=== PATIENT | male | born 1985 | race Caucasian/White ===

== ENCOUNTER 2017-01-09 16:26 | Emergency (ER) | payer OTHER ==
[2017-01-09 16:33] VITALS: BP 130/82; PULSE 101; RESP 20; TEMP 97.5
--- NOTE | 2017-01-09 16:47 | ED ---
Upper Extremity HPI - General Chief Complaint: Extremity Injury, Upper Stated Complaint: Right Hand Injury Time Seen by Provider: 01/09/17 16:47 Source: patient, RN notes reviewed Mode of arrival: ambulatory Limitations: no limitations - History of Present Illness Initial Comments: Patient is a 31-year-old male with chief complaint of right hand and wrist injury after jumping off the back of a truck and his hand hitting a metal piece of equipment. Patient reports that he has broken his right wrist before. He states that this happened approximately 10:30 in the morning. He states that he thinks that he may have broken it again however he is too busy before he realized that his wrist hurt. He reports he stopped the pain with flexion and extension. He denies any peripheral paresthesias. He states that he has pain with thumb and fourth and fifth finger. He denies any pain over the anatomical snuffbox.Patient denies any recent fever, chills, shortness of breath, chest pain, back pain, abdominal pain, nausea vomiting, numbness or tingling, dysuria or hematuria, constipation or diarrhea, headaches or visual changes, or any other current symptoms Place: work - Related Data Previous Rx's Medication Instructions Recorded Acetaminophen-Codeine 300-30mg 1 each PO Q6H PRN #20 tablet 02/23/15 [Tylenol #3] Ibuprofen [Motrin] 800 mg PO Q6HR PRN #30 tab 02/23/15 Penicillin V Potassium [Pen Vee K] 500 mg PO QID 10 Days 02/23/15 Naproxen 500 mg PO Q12HR #20 tab 01/09/17 Allergies Allergy/AdvReac Type Severity Reaction Status Date / Time No Known Allergies Allergy Verified 01/09/17 16:33 Review of Systems ROS Statement: Those systems with pertinent positive or pertinent negative responses have been documented in the HPI. ROS Other: All systems not noted in ROS Statement are negative. Past Medical History Past Medical History: No Reported History History of Any Multi-Drug Resistant Organisms: None Reported Past Surgical History: Adenoidectomy Past Psychological History: No Psychological Hx Reported Smoking Status: Current every day smoker Past Alcohol Use History: Occasional Past Drug Use History: None Reported General Exam - General Exam Comments Initial Comments: Well-appearing 31-year-old male. No acute distress. Limitations: no limitations General appearance: alert, in no apparent distress Head exam: Present: atraumatic, normocephalic, normal inspection Eye exam: Present: normal appearance, PERRL, EOMI. Absent: scleral icterus, conjunctival injection, periorbital swelling ENT exam: Present: normal exam, normal oropharynx, mucous membranes moist, TM's normal bilaterally Neck exam: Present: normal inspection. Absent: tenderness, meningismus, lymphadenopathy Respiratory exam: Present: normal lung sounds bilaterally. Absent: respiratory distress, wheezes, rales, rhonchi, stridor Cardiovascular Exam: Present: regular rate, normal rhythm, normal heart sounds. Absent: systolic murmur, diastolic murmur, rubs, gallop, clicks GI/Abdominal exam: Present: soft, normal bowel sounds. Absent: distended, tenderness, guarding, rebound, rigid Extremities exam: Present: normal inspection, full ROM, normal capillary refill. Absent: tenderness, pedal edema, joint swelling, calf tenderness Right Upper Arm exam: Present: normal inspection, full ROM Elbow exam: Present: normal inspection, full ROM Forearm Wrist exam: Present: normal inspection, full ROM Hand Wrist exam: Present: normal inspection, full ROM, tenderness (To palpation over the dorsal wrist.). Absent: swelling, abrasion Neuro motor exam: Present: wrist extension intact, thumb opposition intact Neurosensory exam: Present: 2-point discrimination Vascular: Present: normal capillary refill Back exam: Present: normal inspection Neurological exam: Present: alert, oriented X3, CN II-XII intact Psychiatric exam: Present: normal affect, normal mood Skin exam: Present: warm, dry, intact, normal color. Absent: rash Course Vital Signs 01/09/17 16:31 Temperature 97.5 F L Pulse Rate 101 H Respiratory 20 Rate Blood Pressure 130/82 O2 Sat by Pulse 100 Oximetry Medical Decision Making - Medical Decision Making Patient is a 31-year-old male with chief complaint of right hand and wrist injury after jumping off the back of a truck and his hand hitting a metal piece of equipment. Patient reports that he has broken his right wrist before. He states that this happened approximately 10:30 in the morning. He states that he thinks that he may have broken it again however he is too busy before he realized that his wrist hurt. He reports he stopped the pain with flexion and extension. Patient's x-rays were reviewed and are negative for any acute fracture. I will give the patient an Alo wrap any anti-inflammatory medication. At the blood as the patient follow-up with orthopedic physician if symptoms continue to persist. Return parameters were discussed. - Radiology Data Radiology results: report reviewed X-rays repeated is no evidence of any acute fracture. Disposition Clinical Impression: Sprain of wrist, right Disposition: HOME SELF-CARE Condition: Good Instructions: Wrist Injury (ED) Additional Instructions: Right patient advised to rest, ice, wear Alo wrap as instructed. Patient advised to follow-up with orthopedic if symptoms continue to persist. Return to the emergency department if any alarming signs or symptoms occur. Prescriptions: Naproxen 500 mg PO Q12HR #20 tab Referrals: Yogesh Stringer MD [Primary Care Provider] - 1-2 days Time of Disposition: 17:26
--- NOTE | 2017-01-09 17:07 | XR ---
EXAMINATION TYPE: XR wrist complete RT DATE OF EXAM: 01/09/2017 5:04 PM CLINICAL HISTORY: pain TECHNIQUE: Frontal, lateral and oblique images of the right wrist are obtained. COMPARISON: None. FINDINGS: There is no acute fracture/dislocation evident. The joint spaces appear within normal limits. The o verlying soft tissue appears unremarkable. IMPRESSION: There is no acute fracture or dislocation seen. ICD 10 NO FRACTURE, INITIAL EVALUATION
--- NOTE | 2017-01-09 17:20 | XR ---
EXAMINATION TYPE: XR hand limited RT DATE OF EXAM: 01/09/2017 5:04 PM CLINICAL HISTORY: pain TECHNIQUE: Frontal, lateral and oblique images of the right hand are obtained. COMPARISON: None. FINDINGS: There is no acute fracture/dislocation evident. The joint spaces appear within normal limi ts. The overlying soft tissue appears unremarkable. IMPRESSION: There is no acute fracture or dislocation ICD 10 NO FRACTURE, INITIAL EVALUATION
== END 2017-01-09 17:36 | disposition home or self-care (01) ==
LOC: EC 16:26
DX: S63.501A Unspecified sprain of right wrist, initial encounter (principal); W22.09XA Striking against other stationary object, initial encounter; Y99.0 Civilian activity done for income or pay; F17.200 Nicotine dependence, unspecified, uncomplicated
CPT/HCPCS: 99283

== ENCOUNTER 2017-05-29 23:41 | Emergency (ER) | payer OTHER ==
--- NOTE | 2017-05-30 00:21 | ED ---
General Adult HPI - General Chief complaint: Urogenital Stated complaint: ABD PAIN Time Seen by Provider: 05/29/17 23:50 Source: patient, RN notes reviewed Mode of arrival: ambulatory Limitations: no limitations - History of Present Illness Initial comments: This is a 31-year-old male who presents to the emergency department complaining that about 6 hours ago he stopped having the ability to urinate. Patient states for the last 2 hours has some suprapubic abdominal pain which is currently subsided. Patient states he still has the urge to urinate but is unable to urinate. Patient denies any recent trauma to the pelvic region. Patient denies any redness swelling to his penis or testicles. Patient states she's never had this problem in the past. Patient states she's not any change in sexual activity. Patient denies any drainage or lesions. Patient states he has had a little bit of back pain recently on the left. Patient states currently is not having any left-sided pain. Patient denies any fever chills per patient denies any vomiting or diarrhea. - Related Data Previous Rx's Medication Instructions Recorded Ciprofloxacin HCl [Cipro] 500 mg PO Q12HR #20 tablet 05/30/17 Allergies Allergy/AdvReac Type Severity Reaction Status Date / Time No Known Allergies Allergy Verified 05/29/17 23:48 Review of Systems ROS Statement: Those systems with pertinent positive or pertinent negative responses have been documented in the HPI. ROS Other: All systems not noted in ROS Statement are negative. Past Medical History Past Medical History: No Reported History History of Any Multi-Drug Resistant Organisms: None Reported Past Surgical History: Adenoidectomy Past Psychological History: No Psychological Hx Reported Smoking Status: Current every day smoker Past Alcohol Use History: Occasional Past Drug Use History: None Reported General Exam - General Exam Comments Initial Comments: GENERAL: Patient is well-developed and well-nourished. Patient is nontoxic and well- hydrated and is in mild distress. ENT: Neck is soft and supple. No significant lymphadenopathy is noted. Oropharynx is clear. Moist mucous membranes. Neck has full range of motion without eliciting any pain. EYES: The sclera were anicteric and conjunctiva were pink and moist. Extraocular movements were intact and pupils were equal round and reactive to light. Eyelids were unremarkable. PULMONARY: Unlabored respirations. Good breath sounds bilaterally. No audible rales rhonchi or wheezing was noted. CARDIOVASCULAR: There is a regular rate and rhythm without any murmurs gallops or rubs. ABDOMEN: Soft and nontender with normal bowel sounds. SKIN: Skin is clear with no lesions or rashes and otherwise unremarkable. NEUROLOGIC: Patient is alert and oriented x3. Cranial nerves II through XII are grossly intact. Motor and sensory are also intact. Normal speech, volume and content. Symmetrical smile. MUSCULOSKELETAL: Normal extremities with adequate strength and full range of motion. LYMPHATICS: No significant lymphadenopathy is noted PSYCHIATRIC: Normal psychiatric evaluation. Limitations: no limitations Course Vital Signs 05/29/17 05/30/17 23:46 01:20 Temperature 98.8 F 98.6 F Pulse Rate 93 85 Respiratory 18 16 Rate Blood Pressure 126/76 130/81 O2 Sat by Pulse 99 97 Oximetry Procedures - Catheter Insertion (Urinary) Indications: to alleviate urinary retention Prophylactic Antibiotics Given: No Bladder Scan/US before Catheterization: Yes Estimated Amount of Urine (mls): 850 Type of Catheter Inserted: coude tip Catheter Balloon Size (mLs): 10 Topical Anesthesia Used: Yes Results: successfully catheterized-immediate flow Patient Tolerated Procedure: well Complications: none Medical Decision Making - Medical Decision Making Nursing was unable to get a fully catheter in so I placed a catheter with a coud tip and had good flow and no complications from the patient Patient had 38 white cells in his urine so I went ahead and gave him a shot of Rocephin and Zithromax. For any possible sexually transmitted diseases. I also sent the patient home on antibiotics. I left the catheter in because of the difficulty in placing. I will have the patient follow up with urology - Lab Data Result diagrams: 05/30/17 00:35 05/30/17 00:35 Lab Results 05/30/17 05/30/17 05/30/17 Range/Units 00:35 00:35 01:30 WBC 11.8 H (3.8-10.6) k/uL RBC 4.61 (4.30-5.90) m/uL Hgb 14.5 (13.0-17.5) gm/dL Hct 42.1 (39.0-53.0) % MCV 91.5 (80.0-100.0) fL MCH 31.5 (25.0-35.0) pg MCHC 34.5 (31.0-37.0) g/dL RDW 14.1 (11.5-15.5) % Plt Count 289 (150-450) k/uL Neutrophils % 71 % Lymphocytes % 21 % Monocytes % 4 % Eosinophils % 2 % Basophils % 1 % Neutrophils # 8.4 H (1.3-7.7) k/uL Lymphocytes # 2.5 (1.0-4.8) k/uL Monocytes # 0.5 (0-1.0) k/uL Eosinophils # 0.3 (0-0.7) k/uL Basophils # 0.1 (0-0.2) k/uL Sodium 138 (137-145) mmol/L Potassium 4.0 (3.5-5.1) mmol/L Chloride 107 (98-107) mmol/L Carbon Dioxide 23 (22-30) mmol/L Anion Gap 8 mmol/L BUN 11 (9-20) mg/dL Creatinine 0.90 (0.66-1.25) mg/dL Est GFR (MDRD) Af Amer >60 (>60 ml/min/1.73 sqM) Est GFR (MDRD) Non-Af >60 (>60 ml/min/1.73 sqM) Glucose 88 (74-99) mg/dL Calcium 8.9 (8.4-10.2) mg/dL Total Bilirubin 0.5 (0.2-1.3) mg/dL AST 25 (17-59) U/L ALT 29 (21-72) U/L Alkaline Phosphatase 83 (38-126) U/L Total Protein 6.2 L (6.3-8.2) g/dL Albumin 3.8 (3.5-5.0) g/dL Urine Color Yellow Urine Appearance Cloudy (Clear) Urine pH 6.5 (5.0-8.0) Ur Specific [place] 1.023 (1.001-1.035) Urine Protein Trace H (Negative) Urine Glucose (UA) Negative (Negative) Urine Ketones Negative (Negative) Urine Blood Negative (Negative) Urine Nitrite Positive (Negative) Urine Bilirubin Negative (Negative) Urine Urobilinogen 2.0 (<2.0) mg/dL Ur Leukocyte Esterase Moderate H (Negative) Urine RBC 3 (0-5) /hpf Urine WBC 38 H (0-5) /hpf Amorphous Sediment Rare H (None) /hpf Urine Bacteria Rare H (None) /hpf Disposition Clinical Impression: Urinary retention, UTI (urinary tract infection) Disposition: HOME SELF-CARE Condition: Good Instructions: Urinary Tract Infection in Men (ED) Additional Instructions: Patient should follow-up with urology. Prescriptions: Ciprofloxacin HCl [Cipro] 500 mg PO Q12HR #20 tablet Referrals: Yogesh Stringer MD [Primary Care Provider] - 1-2 days Time of Disposition: 01:57
[2017-05-30] MEDS ORDERED: LIDOCAINE URO-JET JELLY 2% 5 ML KIT URETHRAL ONE ×2 (00:31→01:09)
[2017-05-30 00:51] LABS: Basophils # (A) 0.1 k/uL (0-0.2); Basophils % (A) 1 %; CH 31.6; CHCM 34.7; Eosinophils # (A) 0.3 k/uL (0-0.7); Eosinophils % (A) 2 %; HCT 42.1 % (39.0-53.0); HDW 2.23; HGB 14.5 gm/dL (13.0-17.5); Luc # (Auto) 0.15; Luc % (Auto) 1; Lymphocytes # (A) 2.5 k/uL (1.0-4.8); Lymphocytes % (A) 21 %; MCH 31.5 pg (25.0-35.0); MCHC 34.5 g/dL (31.0-37.0); MCV 91.5 fL (80.0-100.0); Mean Platelet Volume 7.3; Monocytes # (A) 0.5 k/uL (0-1.0); Monocytes % (A) 4 %; Neutrophils # (A) 8.4 k/uL (1.3-7.7); Neutrophils % (A) 71 %; RBC 4.61 m/uL (4.30-5.90); RDW 14.1 % (11.5-15.5); WBC 11.8 k/uL (3.8-10.6); WBC (Perox) 11.61
[2017-05-30 00:56] LABS: ALT 29 U/L (21-72); AST 25 U/L (17-59); Alkaline Phosphatase 83 U/L (38-126); Anion Gap 8 mmol/L; Blood Urea Nitrogen 11 mg/dL (9-20); Calcium 8.9 mg/dL (8.4-10.2); Carbon Dioxide 23 mmol/L (22-30); Chloride 107 mmol/L (98-107); Glucose 88 mg/dL (74-99); Non-African American GFR(MDRD) >60 (>60 ml/min/1.73 sqM); Sodium 138 mmol/L (137-145); Total Bilirubin 0.5 mg/dL (0.2-1.3); Total Protein 6.2 g/dL (6.3-8.2)
[2017-05-30 01:52] LABS: Amorphous Sediment,Urine Rare /hpf; Appearance,Urine Cloudy (Clear); Bacteria,Urine Rare /hpf; Bilirubin,Urine Negative (Negative); Glucose,Urine (UA) Negative (Negative); Ketones,Urine Negative (Negative); Leukocyte Esterase,Urine Moderate (Negative); Nitrite,Urine Positive (Negative); PH, Urine 6.5 (5.0-8.0); Particle Count 32746; Protein,Urine Trace (Negative); RBC,Urine 3 /hpf (0-5); Specific Gravity,Urine 1.023 (1.001-1.035); UA Billing (MACRO vs. MICRO) MICRO; WBC,Urine 38 /hpf (0-5)
[2017-05-30] MEDS ORDERED: AZITHROMYCIN 500 MG TAB PO STA (01:56)
[2017-05-30 02:18] VITALS: PULSE 82
[2017-05-30 03:16] VITALS: BP 151/87; RESP 16
[2017-05-30 03:20] VITALS: TEMP 98.1
== END 2017-05-30 03:27 | disposition home or self-care (01) ==
LOC: EC 23:41
DX: N39.0 Urinary tract infection, site not specified (principal); R33.9 Retention of urine, unspecified; F17.200 Nicotine dependence, unspecified, uncomplicated
CPT/HCPCS: 99284; 51702; 96365; 51798; 36415; 80053; 85025; 81001; 87040; 87491; 87591; 87086; J0696

== ENCOUNTER 2018-04-30 20:56 | Emergency (ER) | payer OTHER ==
[2018-04-30 21:05] VITALS: BP 117/80; PULSE 100; RESP 18; TEMP 98.7
--- NOTE | 2018-04-30 21:15 | ED ---
Lower Extremity Injury HPI - General Chief Complaint: Extremity Injury, Lower Stated Complaint: ankle injury Time Seen by Provider: 04/30/18 21:07 Source: patient, RN notes reviewed Mode of arrival: ambulatory Limitations: no limitations - History of Present Illness Initial Comments: This is a 32-year-old male who presents to the emergency department with chief complaint of right ankle injury. Patient states that at approximately 6 PM this evening he slid into home base will playing softball. He states that he twisted his right ankle inward. He states that he was initially able to get up off the ground, bear weight and ambulate. He states that he went home and tried to relax. He got up from the couch to go smoke a cigarette and was unable to bear weight and ambulate on the right ankle. Patient complains of pain to the lateral aspect of the right ankle. Denies any other injuries or trauma. Denies fever, chills, chest pain, shortness of breath, abdominal pain, nausea or vomiting, constipation or diarrhea, dysuria or hematuria, numbness or tingling, headache or vision changes. - Related Data Previous Rx's Medication Instructions Recorded Ciprofloxacin HCl [Cipro] 500 mg PO Q12HR #20 tablet 05/30/17 Allergies Allergy/AdvReac Type Severity Reaction Status Date / Time No Known Allergies Allergy Verified 04/30/18 21:04 Review of Systems ROS Statement: Those systems with pertinent positive or pertinent negative responses have been documented in the HPI. ROS Other: All systems not noted in ROS Statement are negative. Past Medical History Past Medical History: No Reported History History of Any Multi-Drug Resistant Organisms: None Reported Past Surgical History: Adenoidectomy Past Psychological History: No Psychological Hx Reported Smoking Status: Current every day smoker Past Alcohol Use History: Occasional Past Drug Use History: None Reported General Exam - General Exam Comments Initial Comments: General: Awake and alert, well-developed; in no apparent distress. HEENT: Head atraumatic, normocephalic. Pupils are equal, round and reactive to light. Extraocular movements intact. Oropharynx moist without erythema or exudate. Neck: Supple. Normal ROM. Cardiovascular: Regular rate and rhythm. No murmurs, rubs or gallops. Chest symmetrical. Respiratory: Lungs clear to auscultation bilaterally. No wheezes, rales or rhonchi. Normal respiratory effort with no use of accessory muscles. Musculoskeletal: Normal range of motion of motion of the right ankle. There is tenderness at the lateral malleolus. Mild soft tissue swelling. No gross deformities. Sensation is intact. Pedal pulses are 2+ equal and palpable bilaterally. Skin: [place], warm and dry without rashes or lesions. Neurological: Alert and oriented x3. CN II-XII grossly intact. Speech is fluent and answers are appropriate. No focal neuro deficits. Psychiatric: Normal mood and affect. No overt signs of depression or anxiety noted. Limitations: no limitations Course Vital Signs 04/30/18 21:02 Temperature 98.7 F Pulse Rate 100 Respiratory 18 Rate Blood Pressure 117/80 O2 Sat by Pulse 97 Oximetry Procedures - Orthopedic Splinting/Casting Injury #1 Side: right Lower Extremity Injury Location: ankle Lower Extremity Immobilizer: AirCast Medical Decision Making - Medical Decision Making This is a 32-year-old male who presents to the emergency department with chief complaint of right ankle injury. Patient complains of an inversion injury to the right ankle this evening. He states he is having difficulty bearing weight and ambulating. There is tenderness and swelling to the lateral aspect of the right ankle. X-ray was obtained and revealed no acute fractures or dislocations. Patient will be provided with an air cast and prescription for crutches. Recommend rest, ice, elevation and ibuprofen as needed. Vital signs are stable and patient is in no acute distress. He will be discharged at this time. All questions answered. - Radiology Data Radiology results: report reviewed, image reviewed Right ankle x-ray impression: Soft tissue swelling. No fracture. Disposition Clinical Impression: Ankle sprain and strain Disposition: HOME SELF-CARE Condition: Good Instructions: Ankle Sprain (ED) Additional Instructions: Please rest, ice, elevate and wear Aircast while ambulating. Please take ibuprofen as needed for pain and inflammation. Please follow up with primary care provider within 1-2 days. Return to emergency department if symptoms should worsen or any concerns arise. Is patient prescribed a controlled substance at d/c from ED?: No Referrals: Uriel Block DO [Primary Care Provider] - 1-2 days Time of Disposition: 21:44
--- NOTE | 2018-04-30 21:30 | XR ---
EXAMINATION TYPE: XR ankle complete RT DATE OF EXAM: 04/30/2018 COMPARISON: NONE HISTORY: Ankle pain TECHNIQUE: 3 views FINDINGS: There is soft tissue swelling over the lateral malleolus. Ankle mortise is anatomic. There is a plantar calcaneal spur. There is a small Achilles calcaneal spur. IMPRESSION: Soft tissue swelling. No fracture.
== END 2018-04-30 22:00 | disposition home or self-care (01) ==
LOC: EC 20:56
DX: S93.401A Sprain of unspecified ligament of right ankle, initial encounter (principal); S96.911A Strain of unspecified muscle and tendon at ankle and foot level, right foot, initial encounter; F17.210 Nicotine dependence, cigarettes, uncomplicated; X50.1XXA Overexertion from prolonged static or awkward postures, initial encounter; Y93.64 Activity, baseball; Y92.009 Unspecified place in unspecified non-institutional (private) residence as the place of occurrence of the external cause
CPT/HCPCS: 99283

== ENCOUNTER 2021-03-15 10:38 | Emergency (ER) | payer OTHER ==
[2021-03-15 10:55] VITALS: RESP 18
[2021-03-15] MEDS ORDERED: KETOROLAC 15 MG/ML 1 ML VIAL IM STA (11:12)
[2021-03-15 11:25] LABS: Appearance,Urine Cloudy (Clear); Bilirubin,Urine Negative (Negative); Blood,Urine Negative (Negative); Color,Urine Yellow; Glucose,Urine (UA) Negative (Negative); Ketones,Urine Negative (Negative); Leukocyte Esterase,Urine Large (Negative); Mucus,Urine Moderate /hpf; Nitrite,Urine Positive (Negative); Protein,Urine 2+ (Negative); RBC,Urine 11 /hpf (0-5); Specific Gravity,Urine 1.028 (1.001-1.035); Sperm,Urine Many /hpf; Squamous Epithelial Cell,Urine 14 /hpf (0-4); Urobilinogen,Urine <2.0 mg/dL (<2.0); WBC,Urine 169 /hpf (0-5)
--- NOTE | 2021-03-15 11:51 | ED ---
General Adult HPI - General Chief complaint: Urogenital Stated complaint: Back pain Time Seen by Provider: 03/15/21 10:50 Source: patient, RN notes reviewed, old records reviewed Mode of arrival: ambulatory Limitations: no limitations - History of Present Illness Initial comments: This is a 35-year-old male who presents emergency Department complaining that he has lower back pain. 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 Patient states the pain does hurt a little bit with twisting as well per patient states he's noted that urine to be darker so he was wondering if there was a urinary tract infection connected to the back pain. Patient denies any fever chills or cough per patient denies any CVA tenderness. Patient denies any abdominal pain patient denies nausea vomiting diarrhea. P atient states case he has a little bit of dysuria but not recently. - Related Data Previous Rx's Medication Instructions Recorded Ciprofloxacin HCl [Cipro] 500 mg PO Q12HR #14 tablet 03/15/21 Doxycycline [Vibramycin] 100 mg PO BID 7 Days #14 capsule 03/15/21 Allergies Allergy/AdvReac Type Severity Reaction Status Date / Time No Known Allergies Allergy Verified 03/15/21 11:24 Review of Systems ROS Statement: Those systems with pertinent positive or pertinent negative responses have been documented in the HPI. ROS Other: All systems not noted in ROS Statement are negative. Past Medical History Past Medical History: No Reported History History of Any Multi-Drug Resistant Organisms: None Reported Past Surgical History: Adenoidectomy Past Psychological History: No Psychological Hx Reported Smoking Status: Current every day smoker Past Alcohol Use History: Occasional Past Drug Use History: None Reported General Exam - General Exam Comments Initial Comments: GENERAL: Patient is well-developed and well-nourished. Patient is nontoxic and well- hydrated and is in mild distress. ENT: Neck is soft and supple. No significant lymphadenopathy is noted. Oropharynx is clear. Moist mucous membranes. Neck has full range of motion without eliciting any pain. EYES: The sclera were anicteric and conjunctiva were pink and moist. Extraocular movements were intact and pupils were equal round and reactive to light. Eyelids were unremarkable. PULMONARY: Unlabored respirations. Good breath sounds bilaterally. No audible rales rhonchi or wheezing was noted. CARDIOVASCULAR: There is a regular rate and rhythm without any murmurs gallops or rubs. ABDOMEN: Soft and nontender with normal bowel sounds. SKIN: Skin is clear with no lesions or rashes and otherwise unremarkable. NEUROLOGIC: Patient is alert and oriented x3. Cranial nerves II through XII are grossly intact. Motor and sensory are also intact. Normal speech, volume and content. Symmetrical smile. MUSCULOSKELETAL: Normal extremities with adequate strength and full range of motion. LYMPHATICS: No significant lymphadenopathy is noted PSYCHIATRIC: Normal psychiatric evaluation. Limitations: no limitations Course Vital Signs 03/15/21 03/15/21 10:50 12:08 Temperature 98.1 F 98.3 F Pulse Rate 88 94 Respiratory 18 18 Rate Blood Pressure 138/85 147/100 O2 Sat by Pulse 98 97 Oximetry Medical Decision Making - Medical Decision Making Patient was given Rocephin and doxycycline emergency department and will be sent home with a prescription for doxycycline and Cipro. - Lab Data Lab Results 03/15/21 Range/Units 11:06 Urine Color Yellow Urine Appearance Cloudy (Clear) Urine pH 6.0 (5.0-8.0) Ur Specific [place] 1.028 (1.001-1.035) Urine Protein 2+ H (Negative) Urine Glucose (UA) Negative (Negative) Urine Ketones Negative (Negative) Urine Blood Negative (Negative) Urine Nitrite Positive (Negative) Urine Bilirubin Negative (Negative) Urine Urobilinogen <2.0 (<2.0) mg/dL Ur Leukocyte Esterase Large H (Negative) Urine RBC 11 H (0-5) /hpf Urine WBC 169 H (0-5) /hpf Ur Squamous Epith Cells 14 H (0-4) /hpf Urine Mucus Moderate H (None) /hpf Urine Sperm Many H (None) /hpf Disposition Clinical Impression: Urinary tract infection, Low back strain Disposition: HOME SELF-CARE Instructions (If sedation given, give patient instructions): Urinary Tract Infection in Men (ED) Prescriptions: Ciprofloxacin HCl [Cipro] 500 mg PO Q12HR #14 tablet Doxycycline [Vibramycin] 100 mg PO BID 7 Days #14 capsule Is patient prescribed a controlled substance at d/c from ED?: No Referrals: Uriel Block DO [Primary Care Provider] - 1-2 days
[2021-03-15] MEDS ORDERED: cefTRIAXone 1,000 MG VIAL (IM USE) IM STA (11:52)
[2021-03-15] MEDS ORDERED: DOXYCYCLINE 100 MG CAP PO STA (11:53)
[2021-03-15 12:09] VITALS: BP 147/100; PULSE 94; TEMP 98.3
[2021-03-16 11:31] LABS: Chlamydia trachomatis rRNA Not detected (Not detected); Neisseria gonorrhoeae rRNA Not detected (Not detected)
== END 2021-03-15 12:37 | disposition home or self-care (01) ==
LOC: EC 10:38
DX: S39.012A Strain of muscle, fascia and tendon of lower back, initial encounter (principal); F17.200 Nicotine dependence, unspecified, uncomplicated; N39.0 Urinary tract infection, site not specified; X50.1XXA Overexertion from prolonged static or awkward postures, initial encounter
CPT/HCPCS: 87591; 87491; 81001; 87086; 99283; 96372 ×2; J0696; J1885